=== PATIENT | male | born 1980 | race Hispanic/Latino ===

== ENCOUNTER 2020-05-09 05:22 | Day surgery (SDC) | payer OTHER ==
[2020-05-09] MEDS ORDERED: TROP1%/CYCLOPEN 1%/PHENYL 2.5% DROPS OPHTH ONE (05:23)
[2020-05-09] MEDS ORDERED: MIDAZOLAM INJ 2 MG/2 ML VIAL ONE ×2 (06:58→07:48)
[2020-05-09] MEDS ORDERED: PROPARACAINE 0.5% OPHTH SOL 15 ML BTTL RIGHT_EYE ONE (07:15)
[2020-05-09] MEDS ORDERED: LIDOCAINE 1% MPF 2 ML VIAL INJ ONE ×2 (07:27→07:33)
[2020-05-09] MEDS ORDERED: MOXIFLOXACIN HCL (OPHTH) 1 DROP DROPS RIGHT_EYE ONE ×3 (07:28→07:52)
[2020-05-09] MEDS ORDERED: TOBRAMYCIN SULF 0.3 % OPHT SOL 1 DROP RIGHT_EYE ONE ×2 (07:28→07:50)
[2020-05-09] MEDS ORDERED: DEXAMETHASONE 0.1% OPHTH SOL 1 DROP RIGHT_EYE ONE ×2 (07:28→07:50)
[2020-05-09] MEDS ORDERED: BRIMONIDINE 0.2% OPHTH DROPS RIGHT_EYE ONE ×2 (07:29→07:50)
== END 2020-05-09 08:52 | disposition home or self-care (01) ==
LOC: AMB 05:22
PROVIDERS: ATTEND Ophthalmology
DX: E11.36 Type 2 diabetes mellitus with diabetic cataract (principal); H25.041 Posterior subcapsular polar age-related cataract, right eye
CPT/HCPCS: 00142; 66984; 82948; J2250

== ENCOUNTER 2020-05-30 05:30 | Day surgery (SDC) | payer OTHER ==
[2020-05-30] MEDS ORDERED: TROP1%/CYCLOPEN 1%/PHENYL 2.5% DROPS OPHTH ONE (05:31)
[2020-05-30] MEDS ORDERED: MIDAZOLAM INJ 2 MG/2 ML VIAL ONE (08:34)
[2020-05-30] MEDS ORDERED: PROPARACAINE 0.5% OPHTH SOL 15 ML BTTL LEFT_EYE ONE (08:36)
[2020-05-30] MEDS ORDERED: MOXIFLOXACIN HCL (OPHTH) 1 DROP DROPS LEFT_EYE ONE (08:36)
[2020-05-30] MEDS ORDERED: BRIMONIDINE 0.2% OPHTH DROPS LEFT_EYE ONE (08:36)
[2020-05-30] MEDS ORDERED: TOBRAMYCIN SULF 0.3 % OPHT SOL 1 DROP LEFT_EYE ONE (08:36)
[2020-05-30] MEDS ORDERED: DEXAMETHASONE 0.1% OPHTH SOL 1 DROP LEFT_EYE ONE (08:36)
[2020-05-30] MEDS ORDERED: LIDOCAINE 1% 2 ML VIAL INJ ONE (08:36)
== END 2020-05-30 09:40 | disposition home or self-care (01) ==
LOC: AMB 05:30
PROVIDERS: ATTEND Ophthalmology
DX: E11.36 Type 2 diabetes mellitus with diabetic cataract (principal); H25.043 Posterior subcapsular polar age-related cataract, bilateral
CPT/HCPCS: 00142; 36416; 66984; 82948; J2250